=== PATIENT | male | born 1995 | race Caucasian/White ===

== ENCOUNTER 2016-10-06 09:27 | Emergency (ER) | payer SELFPAY ==
[~2016-10-06] VITALS: Ht 180.3 cm; Wt 70.3 kg
[2016-10-06] MEDS ORDERED: BROMFED DM COU118 M2 PO ×2 (10:19→10:29)
== END 2016-10-06 10:24 | disposition home or self-care (01) ==
LOC: ED 09:27
DX: J02.9 Acute pharyngitis, unspecified (principal); F17.200 Nicotine dependence, unspecified, uncomplicated